=== PATIENT | female | born 1950 | race Caucasian/White ===

== ENCOUNTER 2017-10-20 12:40 | Observation (INO) | payer OTHER ==
[~2017-10-20] VITALS: Ht 157.5 cm; Wt 60.2 kg
[2017-10-20 13:26] LABS: HEMATOCRIT 42.1 % (36.0-46.0); MCH 28.8 PG (29.0-34.0); MCHC 33.3 G/DL (30.0-36.0); MCV 86.6 FL (83-99); PLATELET COUNT 228 K/uL (156-360); RBC DIS.WIDTH-CV 13.6 % (11.8-14.6); RBC DIS.WIDTH-SD 43.3 % (39-53); RED BLOOD COUNT 4.86 M/uL (3.80-5.20); WHITE BLOOD COUNT 5.2 K/uL (4.1-10.2)
[2017-10-20 13:36] LABS: CHLORIDE 106 mEq/L (99-109); POTASSIUM 4.4 mEq/L (3.7-5.4); SODIUM 143 mEq/L (136-147)
[2017-10-20 13:38] LABS: GLUCOSE 91 mg/dL (70-99)
[2017-10-20 13:42] LABS: CREATININE 0.8 mg/dL (0.6-1.3); GFR ESTIMATE (CALCULATED) > 59 mL/min/
[2017-10-20 13:43] LABS: UREA NITROGEN (BUN) 8 mg/dL (9-23)
[2017-10-20 13:46] LABS: TROP-I INTERPRETATION NEGATIVE; TROPONIN-I < 0.01 ng/mL (0.0-0.30)
[2017-10-20 14:40] LABS: ALBUMIN 4.3 g/dL (3.2-4.8)
[2017-10-20 14:42] LABS: TOTAL PROTEIN 7.3 g/dL (6.4-8.3)
[2017-10-20 14:44] LABS: TOTAL BILIRUBIN 0.4 mg/dL (0.0-1.0)
[2017-10-20 14:45] LABS: ALKALINE PHOSPHATASE 102 IU/L (3-129)
[2017-10-20 14:48] LABS: AST (GOT) 17 IU/L (2-34); DIRECT BILIRUBIN 0.2 mg/dL (0.0-0.3)
[2017-10-20 14:49] LABS: ALT (GPT) 13 IU/L (3-49); LIPASE 35 U/L (1.0-51.0)
[2017-10-20 15:36] LABS: APPEARANCE CLEAR ((CLEAR)); BILIRUBIN NEGATIVE; BLOOD SMALL; COLOR STRAW ((YELLOW)); GLUCOSE (STRIP) NEGATIVE; KETONES NEGATIVE; LEUKOCYTES NEGATIVE; NITRITE NEGATIVE; PROTEIN (STRIP) NEGATIVE; SPECIFIC GRAVITY 1.004 (1.000-1.030); UROBILINOGEN 0.2 MG/DL (0.2-1.0)
[2017-10-20 15:40] LABS: BACTERIA NONE SEEN /HPF; EPITHELIAL CELLS RARE /HPF; MUCUS NONE SEEN /LPF; RED BLOOD CELLS NONE SEEN /HPF (0-5); UCUL ADDED? NO; WHITE BLOOD CELLS 0-5 /HPF (0-5)
[2017-10-20] MEDS ORDERED: TUMS500 MG PO (16:33)
[2017-10-20] MEDS ORDERED: PEPTO BISMOL240 ML PO (16:36)
[2017-10-20] MEDS ORDERED: TYLENOL EXTRA500 MG PO (16:36)
[2017-10-20 16:45] LABS: TROP-I INTERPRETATION NEGATIVE; TROPONIN-I < 0.01 ng/mL (0.0-0.30)
[2017-10-20 17:10] LABS: HDL CHOLESTEROL 31 MG/DL (Desirable>=50); LDL CHOLESTEROL 76 mg/dL (Desirable<100); NON-HDL CHOLESTEROL 97 mg/dL (Desirable<160); TOTAL CHOLESTEROL 128 mg/dL (Desirable<200); TRIGLYCERIDES 107 MG/DL (Normal: <150)
[2017-10-20 17:43] VITALS: BP 132/61
[2017-10-21 00:09] VITALS: BP 122/58
[2017-10-21 01:09] LABS: TROP-I INTERPRETATION NEGATIVE; TROPONIN-I < 0.01 ng/mL (0.0-0.30)
[2017-10-21 03:32] VITALS: BP 112/55
[2017-10-21 05:50] LABS: HEMOGLOBIN 12.2 G/DL (11.9-15.5); MCH 27.7 PG (29.0-34.0); MCHC 32.1 G/DL (30.0-36.0); MCV 86.4 FL (83-99); PLATELET COUNT 225 K/uL (156-360); RBC DIS.WIDTH-CV 13.7 % (11.8-14.6)
[2017-10-21 06:10] LABS: TROP-I INTERPRETATION NEGATIVE; TROPONIN-I 0.01 ng/mL (0.0-0.30)
[2017-10-21 06:12] LABS: ALBUMIN 3.6 G/DL (3.2-4.8); ALKALINE PHOSPHATASE 68 IU/L (3-129); ALT (GPT) 9 IU/L (3-49); AST (GOT) 12 IU/L (2-34); CHLORIDE 108 MEQ/L (99-109); CREATININE 0.7 MG/DL (0.6-1.3); GFR ESTIMATE (CALCULATED) > 59 mL/min/; GLUCOSE 97 mg/dL (70-99); POTASSIUM 4.1 MEQ/L (3.7-5.4); SODIUM 141 MEQ/L (136-147); TOTAL BILIRUBIN 0.3 MG/DL (0.0-1.0); TOTAL PROTEIN 5.9 G/DL (6.4-8.3); UREA NITROGEN (BUN) 10 mg/dL (9-23)
[2017-10-21 07:20] VITALS: BP 124/56
[2017-10-21] MEDS ORDERED: LISINOPRIL2.5 MG PO (09:20)
[2017-10-21] MEDS ORDERED: NITROSTAT0.4 MG SL (09:20)
[2017-10-21] MEDS ORDERED: LOPRESSOR25 MG PO (09:20)
[2017-10-21] MEDS ORDERED: ASPIR-LOW81 MG PO (09:20)
== END 2017-10-21 10:23 | disposition home or self-care (01) ==
LOC: EME 12:40 → RME 12:40 → EDOF 16:21 → ENRESERV 16:22 → 4SOUTH 17:31
PROVIDERS: Internal Medicine; Physician Assistant
DX: R07.89 Other chest pain (principal); F17.210 Nicotine dependence, cigarettes, uncomplicated; I10 Essential (primary) hypertension; E11.9 Type 2 diabetes mellitus without complications; E78.5 Hyperlipidemia, unspecified; Z82.49 Family history of ischemic heart disease and other diseases of the circulatory system
CPT/HCPCS: 71046; 80048; 80053; 80061; 80076; 81003; 82948; 83690; 83880; 84484; 85027; 85379; 93005; 99281; 99285; G0378; J1650; J1815

== ENCOUNTER → 2018-01-05 | Outpatient (CLI) | payer OTHER ==
[~2018-01-05] VITALS: Ht 157.5 cm; Wt 59.9 kg
[~2018-01-05] MED LIST: ASPIR-LOW81 MG PO; ASPIRIN81 M2 PO; LISINOPRIL2.5 MG PO; LOPRESSOR25 MG PO; NITROSTAT0.4 MG SL; PEPTO BISMOL240 ML PO; TUMS500 MG PO; TYLENOL EXTRA500 MG PO
== END | disposition home or self-care (01) ==
LOC: AMB 08:45
DX: Z12.11 Encounter for screening for malignant neoplasm of colon (principal); K29.00 Acute gastritis without bleeding; K21.9 Gastro-esophageal reflux disease without esophagitis; D12.3 Benign neoplasm of transverse colon; D12.4 Benign neoplasm of descending colon; D12.5 Benign neoplasm of sigmoid colon; K57.30 Diverticulosis of large intestine without perforation or abscess without bleeding; K64.8 Other hemorrhoids; Z79.82 Long term (current) use of aspirin; F17.200 Nicotine dependence, unspecified, uncomplicated; E78.5 Hyperlipidemia, unspecified; I10 Essential (primary) hypertension; L40.9 Psoriasis, unspecified; J45.909 Unspecified asthma, uncomplicated; E11.9 Type 2 diabetes mellitus without complications; Z82.49 Family history of ischemic heart disease and other diseases of the circulatory system; Z80.0 Family history of malignant neoplasm of digestive organs
CPT/HCPCS: 88305; 88342 TC; J3010